=== PATIENT | female | born 1995 | race African-American/Black ===

== ENCOUNTER 2021-03-20 04:50 | Inpatient (IN) ==
[2021-03-20] MEDS ORDERED: FAMOTIDINE 20 MG/2 ML VIAL IV ONE (05:59)
[2021-03-20] MEDS ORDERED: CITRIC ACID/SODIUM CITRATE 30 ML UDCUP PO ONE (05:59)
[2021-03-20] MEDS ORDERED: LACTATED RINGERS 1,000 ML IV SCH (06:00)
[2021-03-20] MEDS ORDERED: OXYTOCIN/LR 20 UNIT/1,000 ML BAG IV ONE ×2 (06:04→07:37)
[2021-03-20 06:20] LABS: Basophils % 0.1 % (0.0-0.8); Eosinophils # 0.1 10*3/uL (0.0-0.87); Eosinophils % 0.9 % (0.00-10.9); Hematocrit 35.1 VOL% (35.7-47.0); Hemoglobin 10.6 GM/DL (12.0-16.0); Immature Granulocytes % 0.9 %; Immature Granulocytes Absolute 0.06 #; Lymphocytes # 1.2 10*3/uL (1.4-4.0); Lymphocytes % 17.4 % (21.3-54.2); Mean Corpuscular HGB Conc 30.2 GM/DL (32-36); Mean Platelet Volume 10.1 FL (9.6-12.0); Monocytes % 6.2 % (1.7-12.7); Neutrophils % 74.5 % (38.7-73.9); Platelet Count 249 T/CUMM (130-400); Red Blood Count 4.23 MC/CUMM (3.8-5.5); Red Cell Distribution Width 16.3 % (9.3-17.3); White Blood Count 6.8 T/CUMM (4-12)
[2021-03-20 06:45] LABS: Alanine Aminotransferase 12 U/L (13-56); Albumin 2.9 G/DL (3.4-5.0); Alkaline Phosphatase 103 U/L (45-117); Aspartate Amino Transferase 10 U/L (0-37); Bilirubin,Total < 0.39 MG/DL (0.2-1.0); Blood Urea Nitrogen 8 MG/DL (7-18); Calcium 9.2 MG/DL (8.5-10.1); Carbon Dioxide 24 MMOL/L (21-32); Estimated Glom Filtration Rate 177 ML/MIN; Glucose 92 MG/DL (74-106); Osmolality,Calculated 267.1 MOS/KG (273-304); Sodium 135 MMOL/L (136-145); Total Protein 6.9 G/DL (6.4-8.2)
[2021-03-20] MEDS ORDERED: BUPIVACAINE SPINAL 0.75% 2 ML AMP SPINAL ONE (07:11)
[2021-03-20] MEDS ORDERED: ONDANSETRON 4 MG/2 ML VIAL ONE (07:12)
[2021-03-20] MEDS ORDERED: PHENYLEPHRINE 1 MG/10 ML SYRINGE IV ONE ×2 (07:12→08:27)
[2021-03-20] MEDS ORDERED: miSOPROStoL 200 MCG TABLET ONE (07:37)
[2021-03-20] MEDS ORDERED: CARBOPROST TROMETHAMINE 250 MCG/ML AMP IM ONE (07:37)
[2021-03-20] MEDS ORDERED: METHYLERGONOVINE 0.2 MG/1 ML AMP ONE (07:37)
[2021-03-20] MEDS ORDERED: TRANEXAMIC ACID 1,000 MG/10 ML VIAL ONE (07:37)
[2021-03-20 08:09] LABS: Band Neutrophils 2 % (0-10); Hypochromasia 2+; Lymphocytes 18 % (20-55); Polychromasia Slight; Segmented Neutrophils 76 % (50-85); Total Cells Counted 100
[2021-03-20 08:10] LABS: Microcytosis 1+; Stomatocytes Slight
[2021-03-20 08:28] LABS: Cord Arterial Blood HCO3 19.4 MMOL/L
[2021-03-20 08:30] LABS: Cord Venous Blood HCO3 26.4 MMOL/L; Cord Venous Blood PCO2 58.3 MMHG; Cord Venous Blood PO2 < 19.0 MMHG
[2021-03-20 09:02] LABS: Bilirubin,Urine Negative (Negative); Blood, Urine Negative (Negative); Glucose,Urine (UA) Negative (Negative); Ketones,Urine 5 mg/dL (Negative); Mucus,Urine Occasional /LPF (Occasional); Nitrite,Urine Negative (Negative); Protein,Urine Negative; RBC,Urine <1 /HPF (0-4); Squamous Epithelial Cell,Urine Occasional /HPF (0-10); Urine Appearance CLEAR (Clear); Urine Color Yellow (Yellow); Urine Specific Gravity 1.012 (1.001-1.035); Urine Urobilinogen < 2.0 EU/DL (0.2-1.0)
[2021-03-20] MEDS: ACETAMINOPHEN 500 MG TABLET PO SCH ×3 (09:14→20:23)
[2021-03-20] MEDS: KETOROLAC 30 MG/1 ML VIAL IV SCH ×3 (09:15→20:24)
[2021-03-21] MEDS: KETOROLAC 30 MG/1 ML VIAL IV SCH (03:38)
[2021-03-21] MEDS ORDERED: KETOROLAC 30 MG/1 ML VIAL IV SCH (04:00)
[2021-03-21 05:45] LABS: Basophils % 0.1 % (0.0-0.8); Eosinophils # 0.1 10*3/uL (0.0-0.87); Eosinophils % 0.9 % (0.00-10.9); Hematocrit 27.7 VOL% (35.7-47.0); Immature Granulocytes % 0.8 %; Immature Granulocytes Absolute 0.06 #; Lymphocytes % 12.2 % (21.3-54.2); Mean Corpuscular HGB Conc 32.5 GM/DL (32-36); Mean Corpuscular Volume 79.1 FL (87-102); Mean Platelet Volume 10.3 FL (9.6-12.0); Monocytes % 8.3 % (1.7-12.7); Neutrophils % 77.7 % (38.7-73.9); Platelet Count 199 T/CUMM (130-400); White Blood Count 7.9 T/CUMM (4-12)
[2021-03-21] MEDS: DOCUSATE SODIUM 100 MG CAPSULE PO SCH ×2 (10:58→21:33)
[2021-03-21] MEDS: MULTIVITAMIN (PRENATAL) TABLET PO SCH (10:59)
[2021-03-21] MEDS ORDERED: MAGNESIUM HYDROXIDE SUSP 30 ML UDCUP PO PRN (11:33)
[2021-03-21] MEDS: IBUPROFEN 800 MG TABLET PO PRN (11:42)
[2021-03-22] MEDS: IBUPROFEN 800 MG TABLET PO PRN (07:30)
[2021-03-22 08:33] VITALS: BP 126/75
[2021-03-22] MEDS ORDERED: SIMETHICONE CHEW 80 MG TABLET PO PRN (08:58)
[2021-03-22] MEDS ORDERED: IRON (CARBONYL)/VIT C/B12/FA TABLET PO SCH (09:00)
[2021-03-22] MEDS: MULTIVITAMIN (PRENATAL) TABLET PO SCH (09:11)
[2021-03-22] MEDS: DOCUSATE SODIUM 100 MG CAPSULE PO SCH (09:11)
== END 2021-03-22 11:50 | disposition home or self-care (01) | DRG 540 ==
LOC: N.LDOUT 04:50 → N.LD 04:51 → N.OB 03-21 11:01
PROVIDERS: ADMIT Obstetrics & Gynecology; ATTEND Obstetrics & Gynecology
PROC: LDCSECT (ICD-10-PCS; 2021-03-20 07:00)